=== PATIENT | female | born 1990 | race American Indian/Alaskan Native ===

== ENCOUNTER 2017-04-10 17:05 | Inpatient (IN) | payer OTHER ==
--- NOTE | ~2017-04-10 | HP ---
Unit #: [id number] #: [id number] Patient: CHANELLE MORALES [id number] [place] [address] [id number] I MR#: [id number] NAME: CHANELLE MORALES ROOM: P207 Age: 26 Sex: F Admission Date: 04/10/2017 : 1990 Attending Physician: Ramiro Rubalcava M.D. Admitting Physician: Ramiro Rubalcava M.D. Primary Care Physician: Generic Doctor Not In System HISTORY AND PHYSICAL HISTORY OF PRESENT ILLNESS Chanelle is a 26 year old admitted to [address] [place] [address] because of her polysubstance abuse which includes benzodiazepines and IV heroin. PAST MEDICAL HISTORY 1. Long history of poly-illicit substance abuse to include IV heroin. 2. History of Minor's palsy. 3. Hepatitis C. 4. Cirrhosis. PAST SURGICAL HISTORY 1. Breast augmentation. 2. Cholecystectomy. ALLERGIES Penicillin, sulfa, Keflex, tetracycline, Macrobid, latex. SOCIAL HISTORY Smokes 1 pack per day. Denies alcohol. Admits to a long history of illicit substance abuse to include IV heroin. FAMILY HISTORY Medically noncontributory. REVIEW OF SYSTEMS CONSTITUTIONAL: No fever or chills. HEENT: Denies any sore throat, ear pain or runny nose. CARDIOVASCULAR: Denies chest pain, irregular heart rhythm or palpitations. CHEST: Denies shortness of breath or cough. No hemoptysis. GASTROINTESTINAL: Denies nausea, vomiting, diarrhea or chronic constipation. ENDOCRINE: Denies history of increased thirst or urination. No recent significant weight loss or gain. GENITOURINARY: Denies dysuria, frequency, or hematuria. SKIN: Denies any rashes. HEMATOLOGIC: Denies history of increased bleeding or bruising. MUSCULOSKELETAL: Denies any hot, swollen joints. No generalized muscle pain. NEUROLOGIC: Denies problems with vision or speech. No frequent, severe headaches. No numbness, tingling or weakness in any extremities. Denies loss of bladder or bowel control. CURRENT MEDICATIONS Unit #: [id number] #: [id number] Patient: CHANELLE MORALES 1. Wellbutrin XL 150 mg daily. 2. Neurontin 300 mg t.i.d. 3. Zovirax 400 mg 5 times a day. 4. Zofran p.r.n. 5. Desyrel p.r.n. 6. Milk of Magnesia p.r.n. 7. Maalox p.r.n. 8. Tylenol p.r.n. 9. Nicotine patch 14 mg daily. PHYSICAL EXAMINATION GENERAL: Alert, well-nourished, in no apparent distress. VITAL SIGNS: Blood pressure 110/74, heart rate 62, respirations 16, temperature 98.6. WEIGHT: 172. HEIGHT: 5 feet 4 inches. SKIN: Warm and dry without rash or lesion. HEENT: Normocephalic. TMs not viewed. Oral and nasal passages clear. Conjunctivae clear. PERRLA. EOMs intact. NECK: Supple without lymphadenopathy or thyromegaly. HEART: Regular rate and rhythm without murmur. LUNGS: Clear. ABDOMEN: Soft, nontender. : Not done. EXTREMITIES: No evidence of cyanosis, clubbing or edema. Moves all without focal deficit. NEUROLOGICAL: Moves all extremities without focal deficit. Hand band manager is equal and gait is normal. She has difficulty turning up the right side of her mouth when she smiles. Left lid is weak. IMPRESSION 1. Psychiatric admission. 2. Recent diagnosis of Minor's palsy. RECOMMENDATIONS PSYCHIATRIC: Per psychiatrist. MEDICAL: 1. See no contraindications to participate in facility's activities. 2. Detox per protocol. 3. Continue Zovirax. MEDICAL PROGNOSIS Good. MEDICAL CONDITION Stable. Dictated by... Shannon Vogel P.A.-C. for Saadia Ribeiro/kylie TD: 04/11/2017 18:08 JOB #: [id number] Unit #: [id number] #: [id number] Patient: CHANELLE MORALES HISTORY AND PHYSICAL Page 1 of 1 X Shannon Vogel HISTORY AND PHYSICAL
--- NOTE | ~2017-04-10 | PN ---
Unit #: [id number] #: [id number] Patient: MENDEL MORALES [id number] [facility] [address] [place] [address] [id number] I MR#: [id number] NAME: MENDEL MORALES ROOM: P207 Age: 26 Sex: F Admission Date: 04/10/2017 : 1990 Attending Physician: Ramiro Rubalcava M.D. Admitting Physician: Saadia Baig NOTES DATE OF SERVICE: 04/14/2017 DISCUSSION Benjamin continues to be somewhat irritable and labile this morning, although she had pleasant affect. She is participating appropriately in groups and activities. She is alert and fully oriented with no psychosis. She does complain of some difficulty focusing. She is tolerating Wellbutrin with no adverse side effects. ASSESSMENT Major depression, rule out posttraumatic stress disorder. PLAN Increase Wellbutrin to 300 mg daily and continue current precautions. Dictated by... Saadia Baig/jennifer TD: 04/15/2017 15:54 JOB #: [id number] [facility] NOTES Page 1 of 1 X Ramiro Rubalcava MD PROGRESS NOTE
--- NOTE | ~2017-04-10 | PA ---
Unit #: [id number] #: [id number] Patient: CHANELLE RIOS [id number] [facility] [address] [place] [address] [id number] I MR#: [id number] NAME: CHANELLE RIOS ROOM: P20 Age: 26 Sex: F Admission Date: 04/10/2017 : 1990 Date of Assessment: Attending Physician: Ramiro Rubalcava M.D. Admitting Physician: Ramiro Rubalcava M.D. Primary Care Physician: Generic Doctor Not In System PSYCHIATRIC ASSESSMENT INFORMANTS Patient, reliable; [facility] records, reliable. CHIEF COMPLAINT "my mood." HISTORY OF PRESENT ILLNESS Chanelle Rios is a 26-year-old woman with one previous admission to this facility for chemical dependence. She reports that she has mood lability, helplessness, and hopelessness and has also been using benzodiazepines and occasional IV heroin. However, she denies the need for detox services and states that she continues to have suicidal ideation, racing thoughts, and is unable to contract for safety outside of the hospital. She also reported a decrease in her ADLs. She said that she would shoot herself if not admitted to the hospital, and her admission was accomplished. PAST PSYCHIATRIC HISTORY One previous admission to this facility in August 2016 and previous treatment at [facility] following an overdose. She has also been at the [facility] in the past. FAMILY PSYCHIATRIC HISTORY The patient has extensive history of drug addictions and reports that her mother has bipolar disorder. SOCIAL HISTORY The patient denies a history of sexual, physical, or emotional abuse or neglect. She has previous charges for drug paraphernalia and has an associate's degree in dental technology. She is unemployed and temporarily homeless. PAST MEDICAL HISTORY The patient has hepatitis C. MEDICATIONS None currently. ALLERGIES Penicillin, sulfa drugs, cephalexin, tetracyclines, nitrofurantoin, and latex. SUBSTANCE ABUSE HISTORY The patient has extensive history of heroin and benzodiazepine use with Unit #: [id number] #: [id number] Patient: CHANELLE RIOS occasional experimentation with cocaine. MENTAL STATUS EXAMINATION The patient presented as a mildly disheveled woman, who appeared her stated age. She was labile and cooperative with the examination. Her speech was rapid, but interruptible. Musculoskeletal examination demonstrated mild psychomotor agitation. Her mood was labile with a congruent affect. She was alert and fully oriented. Memory and concentration were fair. Thought processes were goal directed with no active psychosis. She reported suicidal ideation and could not contract for safety outside of the hospital. Her insight and judgment were fair. Her fund of knowledge and abstraction were intact. ASSETS AND LIABILITIES The patient is in general good health and knows local resources. Liabilities include long history of drug use, homeless status, and current unemployment. ADMITTING DIAGNOSES AXIS I: Major depressive disorder, rule out posttraumatic stress disorder; history of polysubstance dependence. AXIS II: No diagnosis. AXIS III: Herpes outbreak. AXIS IV: AXIS V: PSYCHIATRIC PLAN The patient was admitted and placed on suicide precautions. She does not appear to require the detox protocol, and we will restart Neurontin 300 mg t.i.d. for neuropathy, Zovirax 400 mg five times a day for herpes outbreak. I will add Wellbutrin XL 150 mg daily for depression. She will enroll in dual diagnosis groups and activities, and physical examination and laboratory studies will be ordered and reviewed. TREATMENT GOALS Resolution of SI, stabilization of mood, improvement in insight, and improvement in coping skills. DISCHARGE PLANNING Follow up with [facility]. ESTIMATED LENGTH OF STAY 5 days. Dictated by... Ramiro Rubalcava M.D. KARYN/jennifer TD: 04/15/2017 16:09 JOB #: [id number] Unit #: [id number] #: [id number] Patient: CHANELLE RIOS PSYCHIATRIC ASSESSMENT Page 1 of 1 X Ramiro Rubalcava MD X PSYCHIATRIC ASSESSMENT
--- NOTE | ~2017-04-10 | PN ---
Unit #: [id number] #: [id number] Patient: MENDEL RIOS [id number] [facility] [address] [place] [address] [id number] I MR#: [id number] NAME: MENDEL RIOS ROOM: P207 Age: 26 Sex: F Admission Date: 04/10/2017 : 1990 Attending Physician: Ramiro Rubalcava M.D. Admitting Physician: Ramiro Rubalcava M.D. Primary Care Physician: Generic Doctor Not In System [facility] PROGRESS NOTES DATE April 13, [address] Rubalcava DISCUSSION The patient seen and evaluated on April 13, 2017. Ms. Rios reports feeling a bit sleepy today. She is tolerating Wellbutrin without difficulty. She continues to report ongoing anxiety. She is attending groups and unit activities. There are no SI or HI and the patient contracts for safety. She will meet with Dr. Rubalcava tomorrow. She has no other complaints at this time. Dictated by... Carlos Richey/hoang TD: 04/14/2017 11:19 JOB #: [id number] [facility] PROGRESS NOTES Page 1 of 1 X Ana Corrigan PROGRESS NOTE
--- NOTE | ~2017-04-10 | PN ---
Unit #: [id number] #: [id number] Patient: MENDEL MORALES [id number] [facility] [address] [place] [address] [id number] I MR#: [id number] NAME: MENDEL MORALES ROOM: P207 Age: 26 Sex: F Admission Date: 04/10/2017 : 1990 Attending Physician: Ramiro Rubalcava M.D. Admitting Physician: Ramiro Rubalcava M.D. Primary Care Physician: Generic Doctor Not In System [employer] PROGRESS NOTES DATE April 12, [address] Rubalcava DISCUSSION This patient was seen and evaluated on April 12, 2017. She continues to report ongoing anxiety. The patient is tolerating Wellbutrin without difficulty. She reports having a long history of ADHD, anxiety, and OCD symptoms. She is attending groups and unit activities. She denies any SI or HI, contracts for safety. She will continue inpatient hospitalization for medication management and stabilization of her anxiety and depression. Dictated by... Carlos Richey/hoang TD: 04/14/2017 11:17 JOB #: [id number] [facility] PROGRESS NOTES Page 1 of 1 X Ana Corrigan PROGRESS NOTE
--- NOTE | ~2017-04-10 | PN ---
Unit #: [id number] #: [id number] Patient: CHANELLE MORALES [id number] [facility] [address] [place] [address] [id number] I MR#: [id number] NAME: CHANELLE MORALES ROOM: P207 Age: 26 Sex: F Admission Date: 04/10/2017 : 1990 Attending Physician: Ramiro Rubalcava M.D. Admitting Physician: Ramiro Rubalcava M.D. Primary Care Physician: Generic Doctor Not In System [facility] PROGRESS NOTES DATE OF SERVICE 04/15/2017 DISCUSSION Chanelle slept a little bit better last night with her increased dose of Trazodone and is tolerating her increased dose of Wellbutrin with no significant adverse side effects. Her mood is less irritable today but remains somewhat depressed. She is alert and fully oriented with no active psychosis. ASSESSMENT Major depression, polysubstance. PLAN We will continue current medications and precautions and work toward discharge later in the week. Dictated by... Saadia Baig/colby TD: 04/17/2017 00:36 JOB #: [id number] [facility] PROGRESS NOTES Page 1 of 1 X Ramiro Rubalcava MD PROGRESS NOTE
--- NOTE | ~2017-04-10 | DS ---
Unit #: [id number] #: [id number] Patient: CHANELLE MORALES [id number] [facility] [address] [place] [address] [id number] I MR#: [id number] NAME: CHANELLE MORALES ROOM: P207 Age: 26 Sex: F Admission Date: 04/10/2017 : 1990 Discharge Date: 04/16/2017 Attending Physician: Ramiro Rubalcava M.D. Primary Care Physician: Generic Doctor Not In System DISCHARGE SUMMARY REASON FOR ADMISSION Chanelle is a 26-year-old woman, who has been at this facility for chemical dependence, but reports only rare drug use at this point with a detox. She has increasing hopelessness, helplessness, racing thoughts, and suicidal ideation. She said that she would shoot herself if not admitted to the hospital and was accomplished. LABORATORY DATA Please see hospital chart. HOSPITAL COURSE The patient was admitted and placed on suicide precautions. She did not require detox protocol, Wellbutrin XL 150 mg daily was started for depression with the continuation of Neurontin 300 mg 3 times a day for neuropathy, Zovirax 400 mg 5 times a day for herpes outbreak. She participated appropriately in unit, groups, and activities, and tolerated her medications with no problems. Wellbutrin was increased to a normal dose of 300 mg daily with good tolerance. On the date of discharge, she was once again able to contract for safety in the outpatient setting. DISCHARGE DIAGNOSES AXIS I: Major depressive disorder, rule out post-traumatic stress disorder. History polysubstance dependence. AXIS II: No diagnosis. AXIS III: Herpes outbreak. AXIS IV: AXIS V: DISCHARGE INSTRUCTIONS Follow up with [facility] and primary care physician. DISCHARGE MEDICATIONS Trazodone 100 mg at bedtime for insomnia, Wellbutrin XL 300 mg daily for depression, Neurontin 300 mg three times a day for anxiety, and Levaquin 500 mg daily for 5 days for infection. CONDITION AT DISCHARGE Improved. PROGNOSIS Fair to good. Unit #: [id number] #: [id number] Patient: CHANELLE MORALES DIET AND ACTIVITY Per primary care doctor. Dictated by... Ramiro Rubalcava M.D. MR/jennifer TD: 05/23/2017 09:33 JOB #: [id number] DISCHARGE SUMMARY Page 1 of 1 X Ramiro Rubalcava MD DISCHARGE SUMMARY
[2017-04-11 09:45] LABS: BASOPHIL% 0.8 % (0-2.5); EOSINOPHIL# 0.1 X10e3 (0-0.7); EOSINOPHIL% 2.3 % (0.0-7.0); HEMATOCRIT 40.7 % (35.0-45.0); HEMOGLOBIN 13.2 gm/dL (12.0-16.0); LYMPHOCYTE# 1.8 X10e3 (1.0-3.5); LYMPHOCYTE% 46.8 % (17.0-45.0); MEAN CELL VOLUME 86.6 FL (83-96); MEAN CORPUSCULAR HEMOGLOBIN 28.1 PG (28-34); MEAN CORPUSCULAR HGB CONC 32.4 g/dL (30-36); MONOCYTE# 0.5 X10e3 (0-1.0); MONOCYTE% 12.1 % (3.0-12.0); NEUTROPHIL# 1.5 X10e3 (1.5-7.1); PLATELET COUNT 229 X10e3 (140-420); RED CELL DISTRIBUTION WIDTH 15.4 % (11.0-15.5); WHITE BLOOD COUNT 3.9 X10e3 (4.0-10.5)
[2017-04-11 09:56] LABS: DIFF IND NO
[2017-04-11 10:53] LABS: ALBUMIN SERUM 3.1 g/dL (3.5-5.0); BILIRUBIN,TOTAL 0.5 mg/dL (0.2-2.0); CALCIUM SERUM 8.9 mg/dL (8.4-10.2); CREATININE SERUM 0.5 mg/dL (0.6-1.4); GLOM FILT RATE Estimated 131.7 mL/min (>60); PROTEIN TOTAL SERUM 5.7 g/dL (6.0-8.3)
== END 2017-04-16 14:10 | disposition home or self-care (01) | DRG 881 ==
LOC: P2S 19:09
PROVIDERS: Psychiatry & Neurology Psychiatry
PROC: HZ2ZZZZ Detoxification Services for Substance Abuse Treatment (ICD-10-PCS; principal; 2017-04-10)
DX: F32.9 Major depressive disorder, single episode, unspecified (principal); R45.851 Suicidal ideations; F43.10 Post-traumatic stress disorder, unspecified; B00.9 Herpesviral infection, unspecified; Z59.0 Homelessness; Z88.0 Allergy status to penicillin; Z88.2 Allergy status to sulfonamides; Z88.8 Allergy status to other drugs, medicaments and biological substances; Z81.3 Family history of other psychoactive substance abuse and dependence; Z81.8 Family history of other mental and behavioral disorders; Z88.1 Allergy status to other antibiotic agents; F17.210 Nicotine dependence, cigarettes, uncomplicated; G51.0 Bell's palsy; F11.10 Opioid abuse, uncomplicated; F13.10 Sedative, hypnotic or anxiolytic abuse, uncomplicated; Z90.49 Acquired absence of other specified parts of digestive tract
CPT/HCPCS: 80053; 84703; 85025